=== PATIENT | male | born 1985 | race African-American/Black ===

== ENCOUNTER 2017-12-31 01:21 | Emergency (ER) | payer SELFPAY ==
[2017-12-31 02:03] LABS: #Basophils 0.1 thou/uL (0.0-0.2); #Eosinphils 0.1 thou/uL (0.0-0.7); #Lymphocytes 2.2 thou/uL (1.20-3.40); #Monocytes 0.8 thou/uL (0.11-0.59); #Neutrophils 5.5 thou/uL (1.40-6.50); %Basophils 1.5 % (0.0-1.0); %Eosinophils 1.5 % (0.0-10.0); %Lymphocytes 25.6 % (21.0-51.0); %Monocytes 9.2 % (0.0-10.0); %Neutrophils 62.3 % (42.0-75.0); Hemoglobin 15.8 g/dL (14.0-18.0); Mean Corpuscular HGB CONC 36.2 g/dL (32.0-36.0); Mean Corpuscular Volume 88.4 fl (80.0-94.0); Mean Platelet Volume 7.6 fL (7.4-10.4); Platelet Count 256 thou/uL (130-400); RBC Distribution Width 12.3 % (11.5-14.5); Red Blood Cell (RBC) Count 4.94 mill/uL (4.70-6.10); White Blood Cell (WBC) Count 8.8 thou/uL (4.8-10.8)
[2017-12-31 02:38] LABS: ALT (SGPT) 15 U/L (8-55); AST (SGOT) 30 U/L (5-34); Albumin 4.7 g/dL (3.5-5.0); Alkaline Phosphatase 78 U/L (40-150); Anion Gap 16 mmol/L (10-20); BUN (Urea Nitrogen) 9 mg/dL (8.9-20.6); Bilirubin, Total 2.1 mg/dL (0.2-1.2); CK (CPK) 881 U/L (30-200); Calc. Creatinine Clearance 0 mL/min (70-130); Calcium 10.1 mg/dL (7.8-10.44); Carbon Dioxide 24 mmol/L (22-29); Chloride 98 mmol/L (98-107); Estimated GFR-MDRD Greater than 90; Globulin 3.1 g/dL (2.4-3.5); Glucose 99 mg/dL (70-105); Potassium 3.5 mmol/L (3.5-5.1); Protein, Total 7.8 g/dL (6.0-8.3); Sodium 134 mmol/L (136-145)
[2017-12-31 02:42] LABS: Troponin I Less than 0.010 ng/mL (< 0.028)
[2017-12-31 06:16] LABS: CKMB 6.3 ng/mL (0-6.6); Troponin I Less than 0.010 ng/mL (< 0.028)
--- NOTE | 2017-12-31 07:55 | RAD ---
PORTABLE CHEST 1 VIEW: Date: 12/31/17 Time: 0243 hours HISTORY: Chest pain. FINDINGS: The heart size is normal. The lungs are well expanded without focal areas of consolidation, pneumotho rax, or pleural effusions. IMPRESSION: No radiographic evidence of acute cardiopulmonary process. POS: [facility]
== END 2017-12-31 06:40 | disposition home or self-care (01) ==
LOC: ERS 01:21
DX: M62.82 Rhabdomyolysis (principal); R94.31 Abnormal electrocardiogram [ECG] [EKG]; F17.210 Nicotine dependence, cigarettes, uncomplicated
CPT/HCPCS: 36415; 71045; 80053; 82550; 82553; 84484; 85025; 93005; 96360; 96361

== ENCOUNTER 2018-01-31 08:56 | Emergency (ER) | payer SELFPAY ==
[2018-01-31] MEDS ORDERED: Dexamethasone 10 MG/ML VIAL ONE (09:51)
[2018-01-31] MEDS ORDERED: Acetaminophen 325 MG TAB ONE (09:51)
== END 2018-01-31 10:02 | disposition home or self-care (01) ==
LOC: ERS 08:56
DX: J02.9 Acute pharyngitis, unspecified (principal); F17.210 Nicotine dependence, cigarettes, uncomplicated
CPT/HCPCS: 87081; 87430; 99283; J1100

== ENCOUNTER 2018-03-30 20:17 | Emergency (ER) | payer SELFPAY ==
[2018-03-30 20:54] LABS: #Basophils 0.1 thou/uL (0.0-0.2); #Eosinphils 0.1 thou/uL (0.0-0.7); #Lymphocytes 2.4 thou/uL (1.20-3.40); #Monocytes 0.8 thou/uL (0.11-0.59); #Neutrophils 4.5 thou/uL (1.40-6.50); %Basophils 1.4 % (0.0-1.0); %Eosinophils 1.3 % (0.0-10.0); %Lymphocytes 30.3 % (21.0-51.0); %Monocytes 9.8 % (0.0-10.0); %Neutrophils 57.1 % (42.0-75.0); Hemoglobin 15.8 g/dL (14.0-18.0); Mean Corpuscular HGB CONC 36.1 g/dL (32.0-36.0); Mean Corpuscular Hemoglobin 31.4 pg (27.0-31.0); Mean Corpuscular Volume 86.9 fl (80.0-94.0); Mean Platelet Volume 7.3 fL (7.4-10.4); Platelet Count 283 thou/uL (130-400); RBC Distribution Width 12.7 % (11.5-14.5); Red Blood Cell (RBC) Count 5.04 mill/uL (4.70-6.10); White Blood Cell (WBC) Count 7.8 thou/uL (4.8-10.8)
[2018-03-30 21:11] LABS: ALT (SGPT) 14 U/L (8-55); AST (SGOT) 20 U/L (5-34); Albumin 4.6 g/dL (3.5-5.0); Alkaline Phosphatase 66 U/L (40-150); Anion Gap 12 mmol/L (10-20); BUN (Urea Nitrogen) 7 mg/dL (8.9-20.6); Bilirubin, Total 1.9 mg/dL (0.2-1.2); CK (CPK) 419 U/L (30-200); Calc. Creatinine Clearance 0 mL/min (70-130); Carbon Dioxide 26 mmol/L (22-29); Chloride 103 mmol/L (98-107); Estimated GFR-MDRD Greater than 90; Globulin 2.9 g/dL (2.4-3.5); Glucose 95 mg/dL (70-105); Lipase 6 U/L (8-78); Potassium 3.6 mmol/L (3.5-5.1); Protein, Total 7.5 g/dL (6.0-8.3); Sodium 137 mmol/L (136-145)
[2018-03-30 21:16] LABS: Troponin I Less than 0.010 ng/mL (< 0.028)
--- NOTE | 2018-03-30 21:35 | RAD ---
CHEST ONE VIEW: HISTORY: Chest pain. COMPARISON: Chest radiograph from 12/31/2017. FINDINGS: The lungs are without focal air space consolidation, pneumothorax, or effusion. The cardiac silhouet te and mediastinal contour is within normal limits. No acute osseous abnormality. IMPRESSION: No acute intrathoracic abnormality. No significant change. POS: [facility]
[2018-03-30] MEDS ORDERED: Acetaminophen 500 MG TAB ONE (23:07)
[2018-03-30 23:46] LABS: Troponin I Less than 0.010 ng/mL (< 0.028)
== END 2018-03-31 00:15 | disposition home or self-care (01) ==
LOC: ERS 20:17
DX: I10 Essential (primary) hypertension (principal); R07.9 Chest pain, unspecified; F17.210 Nicotine dependence, cigarettes, uncomplicated; Z71.6 Tobacco abuse counseling
CPT/HCPCS: 36415; 71045; 80053; 82553; 83690; 84484; 85025; 93005; 99406

== ENCOUNTER 2018-04-17 21:04 | Inpatient (IN) | payer SELFPAY ==
[2018-04-17] MEDS ORDERED: Nitroglycerin 2% Ointment 1 INCH/1 GM Packet ONE (21:16)
--- NOTE | 2018-04-17 21:30 | RAD ---
CHEST ONE VIEW: 04/17/18 HISTORY: 32-year-old male with history of chest pain and hypertension. COMPARISON: 03/30/18. FINDINGS: Monitor leads overlie the chest. Heart size is within normal limits. The lungs are clear. IMPRESSION: No acute intrathoracic disease. Stable from prior study. POS: [facility]
[2018-04-17 21:44] LABS: #Basophils 0.1 thou/uL (0.0-0.2); #Eosinphils 0.1 thou/uL (0.0-0.7); #Monocytes 0.6 thou/uL (0.11-0.59); #Neutrophils 2.7 thou/uL (1.40-6.50); %Eosinophils 2.2 % (0.0-10.0); %Lymphocytes 36.5 % (21.0-51.0); %Monocytes 10.1 % (0.0-10.0); %Neutrophils 50.2 % (42.0-75.0); Mean Corpuscular HGB CONC 35.7 g/dL (32.0-36.0); Mean Corpuscular Hemoglobin 30.8 pg (27.0-31.0); Mean Corpuscular Volume 86.3 fl (80.0-94.0); Mean Platelet Volume 7.2 fL (7.4-10.4); Platelet Count 247 thou/uL (130-400); RBC Distribution Width 12.6 % (11.5-14.5); Red Blood Cell (RBC) Count 4.87 mill/uL (4.70-6.10); White Blood Cell (WBC) Count 5.5 thou/uL (4.8-10.8)
[2018-04-17 22:06] LABS: ALT (SGPT) 19 U/L (8-55); AST (SGOT) 45 U/L (5-34); Albumin 4.4 g/dL (3.5-5.0); Alkaline Phosphatase 75 U/L (40-150); Anion Gap 11 mmol/L (10-20); BUN (Urea Nitrogen) 8 mg/dL (8.9-20.6); Bilirubin, Total 1.2 mg/dL (0.2-1.2); CK (CPK) 2188 U/L (30-200); Calc. Creatinine Clearance 0 mL/min (70-130); Calcium 9.5 mg/dL (7.8-10.44); Carbon Dioxide 26 mmol/L (22-29); Chloride 103 mmol/L (98-107); Estimated GFR-MDRD Greater than 90; Glucose 99 mg/dL (70-105); Lipase 81 U/L (8-78); Potassium 3.4 mmol/L (3.5-5.1); Protein, Total 7.4 g/dL (6.0-8.3); Sodium 137 mmol/L (136-145)
[2018-04-17 22:10] LABS: Troponin I Less than 0.010 ng/mL (< 0.028)
[2018-04-17 22:42] LABS: Acetaminophen Less than 6.0 mcg/mL (10.0-30.0); Alcohol Less than 10 mg/dL (Less than 10); Salicylate Less than 8.0 mg/dL (15.0-30.0)
[2018-04-17 22:48] LABS: CKMB 9.4 ng/mL (0-6.6)
[2018-04-17 22:49] LABS: Bilirubin Negative (Negative); Blood, Urine Negative (Negative); Clarity CLEAR (Clear); Glucose, Urine (Dipstick) Negative (Negative); Leukocyte Negative (Negative); Nitrite Negative (Negative); Protein, Urine (Dipstick) Negative (Neg-Trace); Specific Gravity, Urine 1.007 (1.002-1.036); pH, Urine 6.5 (5.0-9.0)
[2018-04-17 23:01] LABS: Amphetamine Not Detected (NotDetected); Barbiturates Screen Not Detected (NotDetected); Benzodiazepine Screen Not Detected (NotDetected); Cocaine Metabolite Screen Not Detected (NotDetected); Medtox Reader # READER 4; Methadone Not Detected (NotDetected); Methamphetamine Detected (NotDetected); Opiate Screen Not Detected (NotDetected); Oxycodone Screen Not Detected (NotDetected); Phencyclidine (PCP) Not Detected (NotDetected); THC/Cannabinoid Screen Detected (NotDetected); Tricyclic Screen Not Detected (NotDetected)
[2018-04-17 23:02] LABS: Medtox Control Line Valid? VALID (VALID)
[2018-04-17] MEDS ORDERED: Acetaminophen 325 MG TAB PO PRN (23:08)
[2018-04-17] MEDS ORDERED: Ibuprofen 800 MG TAB PO PRN (23:09)
[2018-04-17] MEDS ORDERED: Nitroglycerin 0.4 MG TAB (25 Tab Bottle) SL PRN (23:14)
[2018-04-18 01:01] VITALS: BMI 31.5
[2018-04-18] MEDS: Sodium Chloride 0.9% 1,000 ML IV SCH ×2 (01:04→06:07)
[2018-04-18 01:07] LABS: Troponin I Less than 0.010 ng/mL (< 0.028)
[2018-04-18 01:09] LABS: CKMB 7.4 ng/mL (0-6.6); Critical Call CKMBM RESULT DECREASING
--- NOTE | 2018-04-18 02:21 | HP ---
PRIMARY CARE PHYSICIAN: None. The patient to [facility]. PRESENTING COMPLAINT: Chest pain. HISTORY OF PRESENT ILLNESS: Mr. Sanford Nichole is a 32-year-old male with a past medical history of hypertension who presented to the emergency room with complaints of intermittent chest pain for the past few months. He describes sharp left-sided pain about 5-6/10, which does not radiate and has no clear aggravating or relieving factors. The pain lasted about a few seconds and then dissipates. This is associated with headaches, but he denies nausea, diaphoresis, PND, orthopnea, lower extremity edema or palpitations. He was given nitroglycerin in the emergency room with some relief. He was seen at the emergency room about 2 weeks ago for similar chest pain and was discharged home after EKG showed no signs of acute ischemia and troponin was negative. The patient is adopted, so family history is unclear. 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 PAST MEDICAL HISTORY: Hypertension. PAST SURGICAL HISTORY: None. FAMILY HISTORY: Unknown as the patient is adopted. SOCIAL HISTORY: He smokes 5 cigarettes daily, but denies using alcohol or illicit drugs. ALLERGIES: None. HOME MEDICATIONS: Hydrochlorothiazide. REVIEW OF SYSTEMS: All systems reviewed and negative except as stated in HPI. PHYSICAL EXAMINATION: VITAL SIGNS: Within normal limits. GENERAL: Not in acute distress. He is lying comfortably in bed. HEENT: Normocephalic, atraumatic. Not pale, anicteric. Moist mucous membranes. NECK: Supple, full range of movement. No JVD. CARDIOVASCULAR: S1 and S2 only. Regular rate and rhythm. No murmurs, rubs, or gallops. RESPIRATORY: Reproducible pain on palpation, otherwise has vesicular breath sounds with no wheezes, rhonchi, or rales. ABDOMEN: Soft, nontender, nondistended. Bowel sounds normoactive. No hepatosplenomegaly. MUSCULOSKELETAL: No edema. PSYCHIATRIC: Alert and well oriented to time, place, or person. No SIs or HIs. NEUROLOGIC: No focal deficits. SKIN: Warm, dry, well perfused. No rashes or lesions. LABORATORY DATA: Serum chemistry significant for mild hypokalemia of 3.4. CBC within normal limits. Initial troponin was less than 0.010. BNP was less than 10. Chest x-ray showed no acute cardiopulmonary process. EKG no signs of acute ischemia. ASSESSMENT AND PLAN: 1. Chest pain: Patient presents with intermittent chest pain for a few months. This plan with some relief with nitroglycerin and aspirin. His cardiac enzymes have been negative and EKG showed no signs of acute ischemia. He has reproducible chest pain, so it is unlikely to have cardiac cause for his pain, but will order a stress test to rule out ACS. In addition, a lipid profile has been ordered, he will be monitored on telemetry, troponin will be trended. He will also be placed on nitroglycerin and aspirin. Depending on stress test results, then Cardiology might be consulted. Also, obtain urine toxicology. 2. Elevated CPK. CPK on admission was just over 2000. This is likely from some muscle breakdown from his strenuous activity yesterday. He has been hydrated parenterally. I will check a repeat CPK in the morning. In addition, we will get a urine drug screen. Deep venous thrombosis prophylaxis: The patient is ambulatory and deep venous thrombosis prophylaxis not required. CODE STATUS: FULL CODE. MTDD
[2018-04-18 04:57] VITALS: BP 106/56; TEMP 98
[2018-04-18 05:44] LABS: #Basophils 0.1 thou/uL (0.0-0.2); #Eosinphils 0.2 thou/uL (0.0-0.7); #Lymphocytes 2.6 thou/uL (1.20-3.40); #Monocytes 0.7 thou/uL (0.11-0.59); #Neutrophils 2.4 thou/uL (1.40-6.50); %Basophils 1.2 % (0.0-1.0); %Eosinophils 2.7 % (0.0-10.0); %Lymphocytes 43.4 % (21.0-51.0); %Monocytes 12.1 % (0.0-10.0); %Neutrophils 40.7 % (42.0-75.0); Hemoglobin 13.4 g/dL (14.0-18.0); Mean Corpuscular Hemoglobin 30.9 pg (27.0-31.0); Mean Corpuscular Volume 88.3 fl (80.0-94.0); Mean Platelet Volume 9.1 fL (7.4-10.4); Platelet Count 174 thou/uL (130-400); RBC Distribution Width 12.7 % (11.5-14.5); Red Blood Cell (RBC) Count 4.34 mill/uL (4.70-6.10)
[2018-04-18 06:11] LABS: Anion Gap 11 mmol/L (10-20); BUN (Urea Nitrogen) 6 mg/dL (8.9-20.6); CK (CPK) 1491 U/L (30-200); Calc. Creatinine Clearance 169 mL/min (70-130); Calcium 8.5 mg/dL (7.8-10.44); Carbon Dioxide 21 mmol/L (22-29); Cardiac Risk 2.8 (Less than 4.5); Chloride 109 mmol/L (98-107); Cholesterol 111 mg/dl (< 200 Desired); Estimated GFR-MDRD Greater than 90; Glucose 83 mg/dL (70-105); HDL Cholesterol 39 mg/dL (>60 Neg Risk); LDL Cholesterol, Calculated 57 mg/dL; Potassium 4.3 mmol/L (3.5-5.1); Sodium 137 mmol/L (136-145); Triglycerides 74 mg/dL (Less than 150)
[2018-04-18 06:28] LABS: Troponin I 0.012 ng/mL (< 0.028)
[2018-04-18] MEDS ORDERED: Potassium Chloride 20 MEQ TAB PO SCH (08:00)
--- NOTE | 2018-04-18 08:38 | PDOC.EVN ---
Event Note - Event Note Event Note: discussed urine drug screen with patient, he takes no OTC meds, denies taking meth. he abruptly said"bring me papers to sign out AMA"
[2018-04-18] MEDS ORDERED: hydrALAZINE 25 MG TAB PO SCH (09:00)
--- NOTE | 2018-04-18 09:50 | DIS ---
DATE OF ADMISSION: 04/17/2018 LEFT AMA: 04/18/2018 PRIMARY CARE PHYSICIAN: None. FINAL DIAGNOSES: Chest pain, hypertension, polysubstance abuse. DISCHARGE MEDICATIONS: None. ALLERGIES: None. HOSPITAL COURSE: The patient admitted through [facility] with intermittent chest pain s, sharp, stabbing for months. He has been seen multiple times in the emergency room. His EKG was u nremarkable. His CBC was normal. His CK was elevated at 2188, follow up 1491. Troponins were owen l x3. His urine drug screen was positive for methamphetamine and THC. I discussed his chest pain wi th him first, subsequently discussed the possibility of over the counter medicines, he said, he had t aken none and been discussed his urine drug screen with him. His partner in the room stated that he never did that. He was fairly quiet and then all of a sudden said give me the paper to sign out AMA and he is gone.
== END 2018-04-18 08:48 | disposition left against medical advice (07) | DRG 313 ==
LOC: ERS 21:04 → 2NO 23:03
PROVIDERS: ADMIT Internal Medicine; ATTEND Internal Medicine
DX: R07.89 Other chest pain (principal); I10 Essential (primary) hypertension; F19.10 Other psychoactive substance abuse, uncomplicated; F17.210 Nicotine dependence, cigarettes, uncomplicated
CPT/HCPCS: 36415; 71045; 80048; 80053; 80061; 80306; 80307; 81003; 82550; 82553; 83690; 83880; 84443; 84484; 85025; 93005; 96360; A4216

== ENCOUNTER 2020-05-01 10:00 | Emergency (ER) | payer OTHER, SELFPAY ==
[2020-05-02 13:12] LABS: SARS-CoV-2 MS2 Positive; SARS-CoV-2 N Gene Negative; SARS-CoV-2 S Gene Negative; SARS-CoV-2 orf1ab Negative
== END 2020-05-01 11:08 | disposition home or self-care (01) ==
LOC: ERS 10:00
DX: Z20.828 Contact with and (suspected) exposure to other viral communicable diseases (principal); I10 Essential (primary) hypertension; F17.210 Nicotine dependence, cigarettes, uncomplicated
CPT/HCPCS: 87635; 99283; U0003